=== PATIENT | female | born 1945 | race Caucasian/White ===

== ENCOUNTER 2018-03-17 09:09 | Day surgery (SDC) | payer MEDICARE ==
[2018-03-17] MEDS ORDERED: ACETAZOLAMIDE 250 MG PO ONE (09:31)
[2018-03-17] MEDS: CYCLOPENTOLATE 1% SOL ONE ×2 (09:34→09:48)
[2018-03-17] MEDS: PROPARACAINE HCL 0.5% OPHTHALMIC SOL ONE ×3 (09:34→10:56)
[2018-03-17] MEDS: PHENYLEPHRINE HCL 10% OPHTHAL SOL ONE ×2 (09:34→09:47)
[2018-03-17] MEDS: KETOROLAC 0.5% OPTH 60 DROP SOL ONE ×2 (09:35→09:48)
[2018-03-17] MEDS ORDERED: MIDAZOLAM 2 MG/2 ML SOL ONE (10:34)
[2018-03-17] MEDS ORDERED: BSS 500 ML 500 ML IR ONE (10:50)
[2018-03-17] MEDS ORDERED: POVIDONE IODINE 5% SOL ONE (10:50)
[2018-03-17] MEDS ORDERED: LIDOCAINE HCL 1% MPF 30 SOL ONE (10:50)
[2018-03-17] MEDS ORDERED: FENTANYL 100MCG/2ML SOL ONE (10:55)
[2018-03-17 11:34] VITALS: TEMP 98.7
[2018-03-17 12:37] VITALS: BP 131/61; PULSE 63; RESP 20; O2SAT 91
== END 2018-03-17 12:32 | disposition home or self-care (01) | DRG 57 ==
LOC: SURG 09:09
PROVIDERS: ATTEND Ophthalmology
DX: G25.9 Extrapyramidal and movement disorder, unspecified (principal)
CPT/HCPCS: J2250; J3010; A9270-GY; J2001